=== PATIENT | male | born 1965 | race Two or more races ===

== ENCOUNTER 2019-03-17 22:27 | Emergency (ER) | payer OTHER ==
[~2019-03-17] VITALS: Ht 165.1 cm; Wt 83.5 kg
[2019-03-17 22:33] VITALS: BP 180/88
== END 2019-03-17 23:03 | disposition home or self-care (01) ==
LOC: ER 22:33
DX: I10 Essential (primary) hypertension (principal); E11.9 Type 2 diabetes mellitus without complications; F10.10 Alcohol abuse, uncomplicated; Y90.9 Presence of alcohol in blood, level not specified